=== PATIENT | female | born 1990 | race Caucasian/White ===

== ENCOUNTER 2024-05-16 07:27 | Inpatient (IN) | payer BC ==
[~2024-05-16] VITALS: Ht 165.1 cm; Wt 107.8 kg
[2024-05-16 07:39] VITALS: BP 121/65
[2024-05-16] MEDS ORDERED: TOPAMAX50 MG PO (07:42)
[2024-05-16] MEDS ORDERED: EFFEXOR XR75 M1 PO (07:42)
[2024-05-16] MEDS ORDERED: VITAMIN D310 MCG PO (07:43)
[2024-05-16] MEDS ORDERED: TIAZAC120 MG PO (07:43)
[2024-05-16] MEDS ORDERED: B12 ACTIVE1000 MCG PO (07:43)
[2024-05-16] MEDS ORDERED: PROTONIX40 MG PO (07:44)
[2024-05-16] MEDS ORDERED: Ondansetron Hydrochloride 4 MG/2 ML VIAL IV ONE (08:20)
[2024-05-16] MEDS ORDERED: MORPHINE Sulfate 2 MG/ML SYR IV ONE ×3 (08:20→20:00)
[2024-05-16] MEDS ORDERED: SODIUM CHLORIDE 0.9% 1,000 ML IV ONE (08:20)
[2024-05-16 08:34] LABS: BASO # 0.1 10*3/uL (0.0-0.1); BASO % 0.7 % (0.0-1.0); EOS # 0.3 10*3/uL (0.0-0.4); EOS % 2.4 % (1.0-4.0); HEMATOCRIT 43.7 % (37.0-47.0); LYMPH # 3.9 10*3/uL (1.3-4.4); LYMPH % 32.2 % (27.0-41.0); MEAN CELL VOLUME 90.1 fl (81.0-99.0); MEAN CORPUSCULAR HGB 29.1 pg (27.0-31.0); MEAN CORPUSCULAR HGB CONC 32.3 g/dl (33.0-37.0); MEAN PLATELET VOLUME 9.4 fl (9.6-12.3); MONO # 0.9 10*3/uL (0.1-1.0); MONO % 7.1 % (3.0-9.0); NEUT # 6.9 10*3/uL (2.3-7.9); NEUT % 57.3 % (47.0-73.0); PLATELET COUNT AUTOMATED 275 10*3/uL (130-400); RED BLOOD COUNT 4.85 10*6/uL (4.10-5.10)
[2024-05-16] MEDS ORDERED: SODIUM CHLORIDE 0.9% 100 ML BAG IV ONE (08:50)
[2024-05-16] MEDS ORDERED: IOHEXOL 350 MG/ML 100 ML VIAL IV ONE (08:50)
[2024-05-16 08:53] LABS: BUN 8 mg/dl (9-23); CHLORIDE 106 mmol/L (98-107); LIPASE 29 U/L (12-53); POTASSIUM 3.4 mmol/L (3.4-5.1)
[2024-05-16 09:11] LABS: TOTAL PROTEIN 6.7 gm/dL (6.0-8.0)
[2024-05-16] MEDS ORDERED: HEPARIN SODIUM 250 ML IV SCH (12:40)
[2024-05-16 12:45] VITALS: BP 127/66
[2024-05-16] MEDS ORDERED: ACETAMINOPHEN 325 MG TAB PO PRN (14:25)
[2024-05-16] MEDS ORDERED: Magnesium Hydroxide 30 ML UDC PO PRN (14:25)
[2024-05-16] MEDS ORDERED: BISACODYL 5 MG TAB PO PRN (14:25)
[2024-05-16] MEDS ORDERED: DOCUSATE SODIUM 100 MG CAP PO SCH (15:10)
[2024-05-16 16:47] VITALS: BP 134/80
[2024-05-16] MEDS ORDERED: RIVAROXABAN 15 MG TAB PO SCH ×2 (17:00→18:00)
[2024-05-16] MEDS ORDERED: DILTIAZEM CD 120 MG CAP PO SCH (17:25)
[2024-05-16] MEDS ORDERED: Vitamin D 400 IU TAB (10 MCG) PO SCH (17:30)
[2024-05-16 17:59] VITALS: BP 124/77
[2024-05-16] MEDS ORDERED: TOPIRAMATE 25 MG TAB PO SCH (18:00)
[2024-05-16 21:39] VITALS: BP 133/71
[2024-05-16] MEDS ORDERED: Venlafaxine Hydrochloride 75 MG CAP PO SCH (21:55)
[2024-05-17 00:20] VITALS: BP 133/65
[2024-05-17] MEDS ORDERED: Acetaminophen/Oxycodone 5 MG/325 MG TABLET PO PRN (01:50)
[2024-05-17 06:12] LABS: BASO % 0.3 % (0.0-1.0); EOS # 0.1 10*3/uL (0.0-0.4); EOS % 0.5 % (1.0-4.0); HEMATOCRIT 42.4 % (37.0-47.0); LYMPH # 2.4 10*3/uL (1.3-4.4); LYMPH % 19.2 % (27.0-41.0); MEAN CELL VOLUME 89.5 fl (81.0-99.0); MEAN CORPUSCULAR HGB 29.1 pg (27.0-31.0); MEAN CORPUSCULAR HGB CONC 32.5 g/dl (33.0-37.0); MEAN PLATELET VOLUME 10.2 fl (9.6-12.3); MONO # 0.9 10*3/uL (0.1-1.0); MONO % 7.5 % (3.0-9.0); NEUT % 72.2 % (47.0-73.0); PLATELET COUNT AUTOMATED 248 10*3/uL (130-400); RED BLOOD COUNT 4.74 10*6/uL (4.10-5.10); RED CELL DISTRI WIDTH 13.2 % (0-14.5); WHITE BLOOD COUNT 12.5 10*3/uL (4.8-10.8)
[2024-05-17 08:00] VITALS: BP 107/76
[2024-05-17 08:06] LABS: ALKALINE PHOSPHATASE 180 U/L (46-116); CHLORIDE 105 mmol/L (98-107); CHOLESTEROL 202 mg/dL (<200); FREE T4 1.14 ng/dl (0.89-1.76); LDL CHOLESTEROL 127 mg/dL (9-159); SGPT/ALT 496 U/L (5-49); TOTAL PROTEIN 6.7 gm/dL (6.0-8.0); TRIGLYCERIDES 86 mg/dl (<150)
[2024-05-17 08:09] LABS: BUN < 5 mg/dl (9-23)
[2024-05-17] MEDS ORDERED: CYANOCOBALAMIN 500 MCG TAB PO SCH (10:00)
[2024-05-17] MEDS ORDERED: Venlafaxine Hydrochloride 75 MG CAP PO SCH ×2 (10:00→22:00)
[2024-05-17] MEDS ORDERED: Pantoprazole Sodium 40 MG TAB PO SCH (10:00)
[2024-05-17] MEDS ORDERED: Ketorolac Tromethamine 15 MG/ML VIAL IV ONE ×2 (10:30→21:05)
[2024-05-17 12:00] VITALS: BP 115/73
[2024-05-17 16:00] VITALS: BP 110/86
[2024-05-17] MEDS ORDERED: Polyethylene Glycol 3350 17 GM PACKET PO SCH (18:00)
[2024-05-17 20:00] VITALS: BP 125/68
[2024-05-17 20:09] LABS: ALKALINE PHOSPHATASE 195 U/L (46-116); CHLORIDE 104 mmol/L (98-107); POTASSIUM 3.4 mmol/L (3.4-5.1); SGPT/ALT 404 U/L (5-49)
[2024-05-17 20:12] LABS: BUN < 5 mg/dl (9-23)
[2024-05-17] MEDS ORDERED: LORazepam 0.5 MG TAB PO PRN (21:10)
[2024-05-17] MEDS ORDERED: GABAPENTIN 100 MG CAP PO SCH (22:00)
[2024-05-18] VITALS: BP 98/54
[2024-05-18 06:00] LABS: ALKALINE PHOSPHATASE 197 U/L (46-116); BUN 5 mg/dl (9-23); CHLORIDE 105 mmol/L (98-107); POTASSIUM 3.4 mmol/L (3.4-5.1); SGPT/ALT 324 U/L (5-49); TOTAL PROTEIN 6.6 gm/dL (6.0-8.0)
[2024-05-18] MEDS ORDERED: Pantoprazole Sodium 40 MG TAB PO SCH (06:00)
[2024-05-18 06:06] LABS: BASO # 0.1 10*3/uL (0.0-0.1); BASO % 0.4 % (0.0-1.0); EOS # 0.3 10*3/uL (0.0-0.4); HEMATOCRIT 42.1 % (37.0-47.0); LYMPH # 3.1 10*3/uL (1.3-4.4); MEAN CELL VOLUME 89.8 fl (81.0-99.0); MEAN CORPUSCULAR HGB 29.2 pg (27.0-31.0); MEAN CORPUSCULAR HGB CONC 32.5 g/dl (33.0-37.0); MEAN PLATELET VOLUME 10.5 fl (9.6-12.3); MONO % 9.2 % (3.0-9.0); NEUT # 6.8 10*3/uL (2.3-7.9); PLATELET COUNT AUTOMATED 262 10*3/uL (130-400); RED BLOOD COUNT 4.69 10*6/uL (4.10-5.10); RED CELL DISTRI WIDTH 13.1 % (0-14.5); WHITE BLOOD COUNT 11.4 10*3/uL (4.8-10.8)
[2024-05-18] MEDS ORDERED: Dicyclomine Hydrochloride 20 MG/10 ML OSYR PO SCH (07:30)
[2024-05-18 08:00] VITALS: BP 101/65
[2024-05-18] MEDS ORDERED: Ondansetron Hydrochloride 4 MG TAB SL PRN (09:10)
[2024-05-18] MEDS ORDERED: Fluoxetine Hydrochloride 20 MG CAP PO SCH (10:00)
[2024-05-18] MEDS ORDERED: Venlafaxine Hydrochloride 75 MG CAP PO SCH (10:00)
[2024-05-18 12:00] VITALS: BP 119/72
[2024-05-18] MEDS ORDERED: Ketorolac Tromethamine 30 MG/ML VIAL IV SCH (14:00)
[2024-05-18 15:58] VITALS: BP 113/74
[2024-05-18 20:00] VITALS: BP 98/60
[2024-05-19] VITALS: BP 109/66
[2024-05-19 05:50] LABS: ALKALINE PHOSPHATASE 234 U/L (46-116); BUN 6 mg/dl (9-23); CHLORIDE 105 mmol/L (98-107); POTASSIUM 3.9 mmol/L (3.4-5.1); SGPT/ALT 223 U/L (5-49); TOTAL PROTEIN 6.7 gm/dL (6.0-8.0)
[2024-05-19 05:59] LABS: BASO % 0.3 % (0.0-1.0); EOS # 0.5 10*3/uL (0.0-0.4); EOS % 4.1 % (1.0-4.0); HEMATOCRIT 42.7 % (37.0-47.0); LYMPH # 1.7 10*3/uL (1.3-4.4); LYMPH % 13.2 % (27.0-41.0); MEAN CELL VOLUME 90.9 fl (81.0-99.0); MEAN CORPUSCULAR HGB 29.4 pg (27.0-31.0); MEAN CORPUSCULAR HGB CONC 32.3 g/dl (33.0-37.0); MEAN PLATELET VOLUME 10.8 fl (9.6-12.3); MONO # 1.4 10*3/uL (0.1-1.0); MONO % 10.7 % (3.0-9.0); NEUT # 9.1 10*3/uL (2.3-7.9); NEUT % 71.5 % (47.0-73.0); PLATELET COUNT AUTOMATED 248 10*3/uL (130-400); RED CELL DISTRI WIDTH 13.1 % (0-14.5); WHITE BLOOD COUNT 12.8 10*3/uL (4.8-10.8)
[2024-05-19 08:00] VITALS: BP 106/74
[2024-05-19] MEDS ORDERED: FOLIC ACID 1 MG TAB PO SCH (10:00)
[2024-05-19] MEDS ORDERED: XARELTO1 EACH PO ×2 (10:31→14:23)
[2024-05-19] MEDS ORDERED: XARELTO20 M1 PO (10:31)
[2024-05-19] MEDS ORDERED: NATURE'S BLEND F1 MG PO (10:32)
[2024-05-19] MEDS ORDERED: XARE20MG PO (14:23)
== END 2024-05-19 11:21 | disposition home or self-care (01) | DRG 176 ==
LOC: ED 07:27 → 4E 12:43 → EDHOLD 12:43 → 4E 22:39
PROVIDERS: Emergency Medicine; Internal Medicine; Student in an Organized Health Care Education/Training Program; ADMIT Internal Medicine; ATTEND Internal Medicine
DX: I26.94 Multiple subsegmental thrombotic pulmonary emboli without acute cor pulmonale (principal); D72.829 Elevated white blood cell count, unspecified; R73.9 Hyperglycemia, unspecified; F41.9 Anxiety disorder, unspecified; G43.919 Migraine, unspecified, intractable, without status migrainosus; K29.50 Unspecified chronic gastritis without bleeding; R74.01 Elevation of levels of liver transaminase levels; Z90.49 Acquired absence of other specified parts of digestive tract; Z79.899 Other long term (current) drug therapy; Z79.01 Long term (current) use of anticoagulants; Z79.2 Long term (current) use of antibiotics; Z82.49 Family history of ischemic heart disease and other diseases of the circulatory system

== ENCOUNTER 2024-08-27 09:28 | Emergency (ER) | payer BC ==
[~2024-08-27] VITALS: Ht 165.1 cm; Wt 107.0 kg
[~2024-08-27 09:28] MED LIST: B12 ACTIVE1000 MCG PO; EFFEXOR XR75 M1 PO; NATURE'S BLEND F1 MG PO; PROTONIX40 MG PO; TIAZAC120 MG PO; TOPAMAX50 MG PO; VITAMIN D310 MCG PO; XARE20MG PO; XARELTO1 EACH PO; XARELTO20 M1 PO
[2024-08-27 10:30] LABS: BASO # 0.1 10*3/uL (0.0-0.1); BASO % 1.1 % (0.0-1.0); EOS # 0.2 10*3/uL (0.0-0.4); EOS % 3.2 % (1.0-4.0); HEMATOCRIT 44.2 % (37.0-47.0); MEAN CORPUSCULAR HGB 29.3 pg (27.0-31.0); MEAN CORPUSCULAR HGB CONC 32.6 g/dl (33.0-37.0); MEAN PLATELET VOLUME 9.4 fl (9.6-12.3); MONO # 0.4 10*3/uL (0.1-1.0); MONO % 6.7 % (3.0-9.0); NEUT # 3.1 10*3/uL (2.3-7.9); NEUT % 47.2 % (47.0-73.0); PLATELET COUNT AUTOMATED 298 10*3/uL (130-400); RED BLOOD COUNT 4.91 10*6/uL (4.10-5.10); RED CELL DISTRI WIDTH 13.1 % (0-14.5); WHITE BLOOD COUNT 6.6 10*3/uL (4.8-10.8)
[2024-08-27 10:51] LABS: ALKALINE PHOSPHATASE 94 U/L (46-116); CHLORIDE 109 mmol/L (98-107); POTASSIUM 3.7 mmol/L (3.4-5.1); SGPT/ALT 20 U/L (5-49); TOTAL PROTEIN 7.5 gm/dL (6.0-8.0)
[2024-08-27 10:52] LABS: BUN < 5 mg/dl (9-23)
== END 2024-08-27 12:20 | disposition home or self-care (01) ==
LOC: ED 09:28
PROVIDERS: Emergency Medicine
DX: R07.89 Other chest pain (principal); R11.0 Nausea; Z90.49 Acquired absence of other specified parts of digestive tract; Z90.89 Acquired absence of other organs

== ENCOUNTER → 2024-09-18 | Outpatient (CLI) | payer BC ==
[~2024-09-18] MED LIST changes: +IOHEXOL 350 MG/ML 100 ML VIAL IV ONE; +SODIUM CHLORIDE 0.9% 100 ML BAG IV ONE; +SODIUM CHLORIDE 0.9% 100 ML IV ONE
== END | disposition home or self-care (01) ==
LOC: CT 09-17 08:00
PROVIDERS: ATTEND Internal Medicine
DX: I26.99 Other pulmonary embolism without acute cor pulmonale (principal); Z90.49 Acquired absence of other specified parts of digestive tract

== ENCOUNTER 2025-09-02 18:09 | Emergency (ER) | payer BC ==
[~2025-09-02] VITALS: Ht 165.1 cm; Wt 98.9 kg
[~2025-09-02 18:09] MED LIST changes: -IOHEXOL 350 MG/ML 100 ML VIAL IV ONE; -SODIUM CHLORIDE 0.9% 100 ML BAG IV ONE; -SODIUM CHLORIDE 0.9% 100 ML IV ONE
[2025-09-02] MEDS ORDERED: RIZATRIPTAN10 MG PO (18:38)
[2025-09-02] MEDS ORDERED: WEGOVY1 MG/0.5 M SQ (18:38)
[2025-09-02] MEDS ORDERED: SODIUM CHLORIDE 0.9% 1,000 ML IV ONE (19:30)
[2025-09-02] MEDS ORDERED: Ondansetron Hydrochloride 4 MG/2 ML VIAL IV ONE ×2 (19:30→20:50)
[2025-09-02 20:10] LABS: BASO # 0.1 10*3/uL (0.0-0.1); BASO % 1.3 % (0.0-1.0); EOS # 0.1 10*3/uL (0.0-0.4); EOS % 1.3 % (1.0-4.0); MEAN CELL VOLUME 89.7 fl (81.0-99.0); MEAN CORPUSCULAR HGB 29.5 pg (27.0-31.0); MEAN PLATELET VOLUME 9.7 fl (9.6-12.3); MONO # 0.4 10*3/uL (0.1-1.0); MONO % 5.7 % (3.0-9.0); NEUT # 3.8 10*3/uL (2.3-7.9); NEUT % 56.4 % (47.0-73.0); NUCLEATED RED BLOOD CELL 0.0 % (0.0-0.0); NUCLEATED RED BLOOD CELL 0.0 10*3/uL (0.0-0.0); PLATELET COUNT AUTOMATED 292 10*3/uL (130-400); RED CELL DISTRI WIDTH 12.6 % (0-14.5)
[2025-09-02 20:28] LABS: BUN 7 mg/dl (9-23); SGPT/ALT 25 U/L (5-49)
[2025-09-02] MEDS ORDERED: Phenergan25 MG PO (20:53)
[2025-09-02] MEDS ORDERED: Ondansetron4 MG PO (20:53)
== END 2025-09-02 21:06 | disposition home or self-care (01) ==
LOC: ED 18:09
PROVIDERS: Internal Medicine
DX: T50.905A Adverse effect of unspecified drugs, medicaments and biological substances, initial encounter (principal); K21.9 Gastro-esophageal reflux disease without esophagitis; Z90.49 Acquired absence of other specified parts of digestive tract; Z90.89 Acquired absence of other organs; Z86.711 Personal history of pulmonary embolism; Y92.89 Other specified places as the place of occurrence of the external cause